=== PATIENT | male | born 1990 | race Caucasian/White ===

== ENCOUNTER 2024-09-18 18:31 | Emergency (ER) | payer OTHER ==
[2024-09-18] MEDS: HYDROmorphone 1 MG/ML Syringe IVPUSH ONE (18:55)
[2024-09-18] MEDS: Take Home: Acetaminophen/HYDROcodone 325-5 MG, 2 Tab Pack PO ONE (19:23)
== END 2024-09-18 19:32 | disposition home or self-care (01) ==
LOC: CC.ED 18:31
DX: S43.005A Unspecified dislocation of left shoulder joint, initial encounter (principal); W19.XXXA Unspecified fall, initial encounter; Y99.0 Civilian activity done for income or pay; Y92.89 Other specified places as the place of occurrence of the external cause
CPT/HCPCS: 23650; 73030-LT; 96374; 99283-25; A9270-GY; J1171